=== PATIENT | female | born 1980 | race Caucasian/White ===

== ENCOUNTER 2017-03-26 11:42 | Emergency (ER) | payer MEDICAID ==
[2017-03-26 11:52] VITALS: BMI 27.8
[2017-03-26 12:03] VITALS: BP 125/70; PULSE 88; RESP 18; TEMP 97; O2SAT 97
--- NOTE | 2017-03-26 12:15 | ED PDOC ---
HPI: CCC, URI, Sore Throat Time Seen by Provider: 03/26/17 12:15 Chief Complaint (Nursing): Cough, Cold, Congestion Chief Complaint (Provider): chest pain, Cough History Per: Patient Past Medical History Vital Signs: Last Vital Signs Temp 97.0 F L 03/26/17 11:59 Pulse 88 03/26/17 11:59 Resp 18 03/26/17 11:59 BP 125/70 03/26/17 11:59 Pulse Ox 97 03/26/17 12:15 - Medical History PMH: HTN (induced during ), Migraine - Immunization History Hx Tetanus Toxoid Vaccination: No Hx Influenza Vaccination: No Hx Pneumococcal Vaccination: No - Home Medications Home Medications: Ambulatory Orders Medication Instructions Recorded Guaifenesin 100 mg PO Q8 PRN #100 ml 11/11/13 Prena1 Chew 1 tab PO HS 11/11/13 oxyCODONE/Acetaminophen [Percocet 1 tab PO Q8 PRN #8 tab 11/11/13 5/325 mg Tab] - Allergies Allergies/Adverse Reactions: Allergies Allergy/AdvReac Type Severity Reaction Status Date / Time latex Allergy ITCHING Verified 03/26/17 11:51 Penicillins Allergy RASH Verified 03/26/17 11:51 - ECG Interpretation Of ECG: NSR 88 bpm, no acute finding, reviewed by PA and ED attending O2 Sat by Pulse Oximetry: 97 Disposition - Disposition Forms: [facility] ([place])
--- NOTE | 2017-03-26 12:30 | ED PDOC ---
HPI: CCC, URI, Sore Throat Time Seen by Provider: 03/26/17 12:15 Chief Complaint (Nursing): Cough, Cold, Congestion Chief Complaint (Provider): cough, cold, congestion History Per: Patient History/Exam Limitations: no limitations Onset/Duration Of Symptoms: Days (x 7) Additional Complaint(s): Deborah Watson is a 37 year old female, with no previous medical history, who presents to the ED with complaints of a cough productive of green sputum associated with pleuritic chest pain ongoing for 1 week. She denies any fevers or shortness of breath. PMD: none provided Past Medical History Reviewed: Historical Data, Nursing Documentation, Vital Signs Vital Signs: Last Vital Signs Temp 97.0 F L 03/26/17 11:59 Pulse 88 03/26/17 11:59 Resp 18 03/26/17 11:59 BP 125/70 03/26/17 11:59 Pulse Ox 97 03/26/17 12:32 - Medical History PMH: HTN (induced during ), Migraine - Family History Family History: States: Unknown Family Hx - Social History Current smoker - smoking cessation education provided: Yes - Immunization History Hx Tetanus Toxoid Vaccination: No Hx Influenza Vaccination: No Hx Pneumococcal Vaccination: No - Home Medications Home Medications: Ambulatory Orders Medication Instructions Recorded Guaifenesin 100 mg PO Q8 PRN #100 ml 11/11/13 Prena1 Chew 1 tab PO HS 11/11/13 oxyCODONE/Acetaminophen [Percocet 1 tab PO Q8 PRN #8 tab 11/11/13 5/325 mg Tab] Albuterol HFA [Ventolin HFA 90 2 puff IH Q4H #1 puff 03/26/17 mcg/actuation (8 g)] Azithromycin [Zithromax] 250 mg PO DAILY #6 tab 03/26/17 - Allergies Allergies/Adverse Reactions: Allergies Allergy/AdvReac Type Severity Reaction Status Date / Time latex Allergy ITCHING Verified 03/26/17 11:51 Penicillins Allergy RASH Verified 03/26/17 11:51 Review of Systems ROS Statement: Except As Marked, All Systems Reviewed And Found Negative Constitutional: Negative for: Fever, Chills Cardiovascular: Positive for: Chest Pain (pleuritic) Respiratory: Positive for: Cough, Sputum (green) Physical Exam - Reviewed Nursing Documentation Reviewed: Yes Vital Signs Reviewed: Yes - Physical Exam Appears: Positive for: Well, Non-toxic, No Acute Distress Head Exam: Positive for: ATRAUMATIC, NORMAL INSPECTION, NORMOCEPHALIC Skin: Positive for: Normal Color, Warm, Dry Eye Exam: Positive for: Normal appearance ENT: Positive for: Normal ENT Inspection Neck: Positive for: Normal, Painless ROM Cardiovascular/Chest: Positive for: Regular Rate, Rhythm, Other (reproductive anterior chest wall pain ) Respiratory: Positive for: Rhonchi (scattered). Negative for: Decreased Breath Sounds, Accessory Muscle Use, Crackles, Rales, Wheezing, Respiratory Distress Gastrointestinal/Abdominal: Positive for: Normal Exam, Bowel Sounds, Soft. Negative for: Tenderness Back: Positive for: Normal Inspection Extremity: Positive for: Normal ROM Neurologic/Psych: Positive for: Alert, Oriented - ECG O2 Sat by Pulse Oximetry: 97 (RA) Pulse Ox Interpretation: Normal Medical Decision Making Medical Decision Making: Initial Plan: * CXR * EKG * urine * reevaluation Scribe Attestation: Documented by Cheryl Shrestha, acting as a scribe for Coral Feliciano MD. Provider Scribe Attestation: All medical record entries made by the Scribe were at my direction and personally dictated by me. I have reviewed the chart and agree that the record accurately reflects my personal performance of the history, physical exam, medical decision making, and the department course for this patient. I have also personally directed, reviewed, and agree with the discharge instructions and disposition. Disposition - Clinical Impression Clinical Impression: Bronchitis - Patient ED Disposition Is Patient to be Admitted: No Counseled Patient/Family Regarding: Studies Performed, Diagnosis, Need For Followup, Rx Given - Disposition [facility]errals: [facility] [Outside] Disposition: Routine/Home Disposition Time: 12:58 Condition: FAIR Prescriptions: Albuterol HFA [Ventolin HFA 90 mcg/actuation (8 g)] 2 puff IH Q4H #1 puff Azithromycin [Zithromax] 250 mg PO DAILY #6 tab Instructions: Acute Bronchitis (ED) Forms: [facility] (Ukrainian)
--- NOTE | 2017-03-26 13:56 | RAD ---
HISTORY: cough COMPARISON: No prior. TECHNIQUE: Chest PA and lateral FINDINGS: LUNGS: No active pulmonary disease. PLEURA: No significant pleural effusion identified. No pneumothorax apparent. CARDIOVASCULAR: Normal. OSSEOUS STRUCTURES: No significant abnormalities. VISUALIZED UPPER ABDOMEN: Normal. OTHER FINDINGS: None. IMPRESSION: No acute cardiopulmonary disease appreciated.
--- NOTE | 2017-03-27 10:26 | CARD ---
APPROVED REPORT EKG Measurement Heart [id number] <Conclusion> Normal sinus rhythm Normal ECG
== END 2017-03-26 13:14 | disposition home or self-care (01) ==
LOC: H.ER 11:42
DX: J20.9 Acute bronchitis, unspecified (principal); I10 Essential (primary) hypertension; Z88.0 Allergy status to penicillin